=== PATIENT | male | born 1945 | race Caucasian/White ===

== ENCOUNTER 2022-03-19 22:10 | Emergency (ER) | payer MEDICARE, BC, SELFPAY ==
--- NOTE | 2022-03-19 22:15 | CRLHL7_ITS ---
For Patients: As a result of the Cures Act, medical imaging exams and procedure reports are released immediately into your electronic medical record. You may view this report before your referring provider. If you have questions, please contact your health care provider. INDICATION: Fall, hit head. COMPARISON: None. TECHNIQUE: CT of the head without IV contrast. Coronal and sagittal reconstructions. FINDINGS: No intracranial hemorrhage, mass effect, or evidence of acute infarct. No midline shift. No abnormal extra-axial fluid collections. Mild generalized cerebral and cerebellar volume loss with associated ex vacuo dilation of the lateral ventricles. Mild chronic small vessel ischemic disease. Orbits and extraocular muscles are symmetric. The paranasal sinuses and mastoid air cells are clear. Scaphocephaly is noted. No acute fracture identified. Mild posterior scalp soft tissue swelling. IMPRESSION: 1. No acute intracranial findings. 2. Mild generalized cerebral volume loss and mild chronic small vessel ischemic disease. 3. Mild posterior scalp soft tissue swelling. Please note that all CT scans at this facility use dose modulation, iterative reconstruction, and/or weight-based dosing when appropriate to reduce radiation dose to as low as reasonably achievable. Dictated by Teresita Chow MD @ 03/19/2022 11:42:01 PM (Electronically Signed)
--- NOTE | 2022-03-19 22:22 | CRLHL7_ITS ---
For Patients: As a result of the Cures Act, medical imaging exams and procedure reports are released immediately into your electronic medical record. You may view this report before your referring provider. If you have questions, please contact your health care provider. INDICATION: Fall, head and neck pain. COMPARISON: None. TECHNIQUE: CT of the cervical spine without IV contrast. Coronal and sagittal reconstructions. FINDINGS: No acute fracture or traumatic malalignment of the cervical spine. Vertebral body heights are well maintained. Normal vertebral body alignment. Spondylotic changes including endplate spurring, facet arthropathy, and disc space narrowing greatest at C5-C6 and C6-C7. Moderate neural foraminal narrowing on the right at C3-C4 and moderate bilaterally at C5-C6. No significant spinal canal stenosis. No prevertebral soft tissue swelling. Visualized intracranial contents are unremarkable. The mastoid air cells are clear. The thyroid gland is normal in appearance. Calcified granuloma posterior left apex. The lung apices are otherwise clear. IMPRESSION: 1. No acute fracture or traumatic malalignment of the cervical spine. 2. Spondylotic changes of the cervical spine as described above. Please note that all CT scans at this facility use dose modulation, iterative reconstruction, and/or weight-based dosing when appropriate to reduce radiation dose to as low as reasonably achievable. Dictated by Teresita Chow MD @ 03/19/2022 11:48:38 PM (Electronically Signed)
--- NOTE | 2022-03-19 22:23 | CRLHL7_ITS ---
For Patients: As a result of the Century Cures Act, medical imaging exams and procedure reports are released immediately into your electronic medical record. You may view this report before your referring provider. If you have questions, please contact your health care provider. INDICATION: Fall. TECHNIQUE: Two views of the thoracic spine. Two views of the lumbar spine. COMPARISON: None available. FINDINGS: Diffuse demineralization. Thoracic spine: The visualization of the upper thoracic spine is degraded by overlying attenuating structures. Mild generalized thoracic hyperkyphosis. No static subluxation or thoracic vertebral height loss identified. Mild multilevel spondylosis. Lumbar spine: Normal alignment. The lumbar vertebral body heights are maintained. Moderate multilevel spondylosis. IMPRESSION: Thoracolumbar spine without static subluxation or vertebral height loss. Dictated by Jessee Arciniega MD @ 03/19/2022 11:47:36 PM Dictated by: Jessee Arciniega MD @ 03/19/2022 23:47:52 (Electronically Signed)
[2022-03-19 22:24] VITALS: BP 165/90; PULSE 97; RESP 16; TEMP 36.8; O2SAT 98
--- NOTE | 2022-03-19 22:25 | ED.HEATRA ---
HPI - Head Injury General Time Seen by Provider: 22:25 Date Seen: 03/19/22 Chief complaint: Head Injury/Pain Stated complaint: fell on ice Time Seen by Provider: 03/19/22 22:25 Source: patient and RN notes reviewed Mode of arrival: ambulatory Limitations: no limitations History of Present Illness HPI Narrative: Patient is a very pleasant 76-year-old gentleman with history of type 2 diabetes and hyperlipidemia who comes to the emergency room for evaluation regarding fall. Patient was departing the hospital after having visited his who is a patient on [facility] when he fell in our parking lot. He fell onto his back initially and then struck the back of his head. He did not lose consciousness. He remembers being helped up by 2 individuals. He actually drove home and realized that he had lost his cellphone and came back. Once here he decided to be checked out as he had been experiencing increasing back pain. Given volume he was visualized briefly in the hallway and was alert and oriented and sent directly to CT for head neck CTs as well as lumbar and thoracic spine x-rays. Now that he is back in his room he notes that he has been experiencing increasing discomfort in his back bilaterally. Does is upper back rib area. He notes that it is incredibly painful to take a deep breath. He also notes discomfort in the upper aspect of his abdomen and lower anterior chest wall. He has not had any nausea or vomiting. At this time he denies neck pain. He does note that he has a large bump on the back of his head. He denies lower extremity numbness or tingling. Related Data Home Medications Medication Instructions Recorded Confirmed atorvastatin 20 mg tablet mg 03/19/22 metformin 500 mg tablet,extended mg PO 03/19/22 release 24 hr Allergies Allergy/AdvReac Type Severity Reaction Status Date / Time No Known Drug Allergies Allergy Verified 03/19/22 22:26 Review of Systems Status of ROS: Reports: 10 or more systems reviewed and unremarkable except as noted in History and below Const: Denies: fever or chills Eyes: Denies: change in vision or blurry vision ENMT: Denies: throat pain or neck pain Cardio: Reports: chest pain (With inspiration); Denies: palpitations, swelling of feet/ankles or shortness of breath with exertion Resp: Denies: shortness of breath, cough or wheezing GI: Reports: abdominal pain; Denies: nausea, vomiting or diarrhea : Denies: painful urination or urinary frequency Musculo: Reports: back pain; Denies: neck pain, extremity pain or extremity swelling Neuro: Reports: headache; Denies: numbness in extremities or weakness in extremities Allergy/Immuno: Denies: wheezing [facility] Medical History Diabetes Hypercholesteremia Social History Smoking Status: Never smoker How often do you have a drink containing alcohol: never AUDIT-C Alcohol total score: 0 Exam Narrative: Exam Narrative: Patient is alert and oriented. GCS of 15. EOM is full and pupils are equal round reactive. Heart with regular rate and rhythm and lungs are clear in all lung alejandro. However patient has having difficulty with deep inspiration. May be decreased breath sounds in the bases. Patient has no tenderness down thoracic or lumbar spine centrally. He does have tenderness without crepitus over the bilateral posterior ribs. No ecchymosis is noted. Abdomen is obese soft nontender. Moving all extremities. Const: Vital Signs, click to edit/add: Vital Signs - 24 hr 03/19/22 22:24 03/19/22 23:40 03/20/22 01:06 Temperature 98.2 F 98.2 F 98.6 F Pulse Rate [Right Pulse Oximeter] 97 89 88 Respiratory Rate 16 16 16 Blood Pressure [Ri ght Upper Arm] 165/90 H 128/88 131/91 H Pulse Oximetry 98 97 Oxygen Delivery Me thod Room Air Room Air Documenting provider has reviewed patient's vital signs: yes Course Course Hospital Course: At this time will need to add chest CT as I suspect rib fractures in this gentleman. Will also use morphine 2 mg Zofran 4 mg for discomfort. Reevaluation(s) Reevaluation #1: Patient declines morphine as he wishes to drive home tonight. He continues to have stable vital signs. Vital Signs Vital signs: Initial Vital Signs Temperature 98.2 F 03/19/22 22:24 Temperature Source Temporal Artery Scan 03/19/22 22:24 Pulse Rate 97 03/19/22 22:24 Pulse Rhythm 03/19/22 22:24 Respiratory Rate 16 02/06/23 22:24 Blood Pressure 165/90 H 03/19/22 22:24 Blood Pressure Mean 115 03/19/22 22:24 Blood Pressure Position Sitting 03/19/22 22:24 Pulse Oximetry 98 03/19/22 22:24 Oxygen Delivery Method 03/19/22 22:24 Vital Signs Temperature 98.2 F 03/19/22 22:24 Pulse Rate 97 03/19/22 22:24 Respiratory Rate 16 03/19/22 22:24 Blood Pressure 165/90 H 03/19/22 22:24 Pulse Oximetry 98 03/19/22 22:24 Oxygen Delivery Method 03/19/22 22:24 Temperature 98.6 F 03/20/22 01:06 Pulse Rate 88 03/20/22 01:06 Respiratory Rate 16 03/20/22 01:06 Blood Pressure 131/91 H 03/20/22 01:06 Pulse Oximetry 97 03/19/22 23:40 Oxygen Delivery Method 03/19/22 23:40 MDM - Head Injury MDM Narrative Medical decision making narrative: 1. Fall -patient is noted to have slipped in our parking lot landing on his back and then striking his head. He had no produce drove will symptoms to this and fortunately no acute significant injury. 2. Head injury-patient has no signs of concussion at this time. He is denies nausea vomiting. No visual changes. Head CT without evidence of intracranial bleed or skull fracture. Recommend Tylenol as needed for discomfort. Receive 1 g Tylenol while in the emergency room. 3. Rib injury-patient has discomfort with deep breathing and definitely has discomfort with palpation over his back. CT of the chest without evidence of pneumothorax or fracture of the ribs. Patient is requesting something for pain at home. This would be reasonable tonight. Will use oxycodone 5 mg tab 1/2-1 tab p.o. q.4-6 hours p.r.n. pain, 10. With no refills. Did explain to patient that he should not be using alcohol, driving. He does not have a history of sleep apnea nor does he use benzodiazepines. 4. Disposition-patient is discharged home. CT without any evidence of abdominal injury. Return to the emergency room for onset of new symptoms and for worsening symptoms. Medical Records Attestation: I reviewed the patient's medical records. Lab Data Attestation: I reviewed the patient's lab results. Labs: Lab Results 03/19/22 03/19/22 03/19/22 Range/Units 23:30 23:30 23:42 WBC 13.98 H (4.50-11.00) K/uL RBC 5.19 (4.30-5.90) m/uL Hgb 17.0 (13.5-17.5) gm/dL Hct 49.6 (37.0-53.0) % MCV 96 (80-100) fL MCH 33 (26-34) pg MCHC 34 (32-36) gm/dL RDW Coeff of Shelbie 11.7 (11.5-15.5) % Plt Count 295 (140-440) K/uL Neut % (Auto) 84.0 H (42.0-72.0) % Lymph % (Auto) 6.3 L (20-44) % Floyd % (Auto) 7.2 (0.0-11.0) % Eos % (Auto) 1.2 (0.0-7.0) % Baso % (Auto) 0.2 (0.0-3.0) % Neut # (Auto) 11.70 H (1.7-7.0) K/uL Lymph # (Auto) 0.90 (0.90-2.90) K/uL Floyd # (Auto) 1.00 H (0.00-0.90) K/UL Eos # (Auto) 0.20 (0.00-0.50) K/uL Baso # (Auto) 0.00 (0.00-0.30) K/uL Sodium 137 (135-149) mmol/L Potassium 4.7 (3.6-5.1) mmol/L Chloride 103 (96-114) mmol/L Carbon Dioxide 27 (20-32) mmol/L BUN 18 (7-30) mg/dL Creatinine 0.8 (0.5-1.5) mg/dL Estimated GFR 93 ml/min Glucose 209 H (60-115) mg/dL Calcium 9.5 (8.4-10.6) mg/dL Total Bilirubin 1.4 (0.1-1.5) mg/dL AST 37 H (12-35) U/L ALT 31 (4-50) U/L Alkaline Phosphatase 86 (40-150) U/L Total Protein 7.6 (6.0-8.3) g/dL Albumin 4.6 (3.3-5.0) g/dL POC Creatinine 1.0 (0.6-1.3) mg/dl Imaging Data CT scan - head: Attestation: I have reviewed the pertinent imaging results. My impression: No intracranial bleed or skull fracture noted. Radiologist's impression: No intracranial hemorrhage, mass effect, or evidence of acute infarct. No midline shift. No abnormal extra-axial fluid collections. Mild generalized cerebral and cerebellar volume loss with associated ex vacuo dilation of the lateral ventricles. Mild chronic small vessel ischemic disease. Orbits and extraocular muscles are symmetric. The paranasal sinuses and mastoid air cells are clear. Scaphocephaly is noted. No acute fracture identified. Mild posterior scalp soft tissue swelling. IMPRESSION: 1. No acute intracranial findings. 2. Mild generalized cerebral volume loss and mild chronic small vessel ischemic disease. 3. Mild posterior scalp soft tissue swelling. Cervical spine CT: Attestation: I have reviewed the pertinent imaging results. My impression: No noted fracture Radiologist's impression: No acute fracture or traumatic malalignment of the cervical spine. Vertebral body heights are well maintained. Normal vertebral body alignment. Spondylotic changes including endplate spurring, facet arthropathy, and disc space narrowing greatest at C5-C6 and C6-C7. Moderate neural foraminal narrowing on the right at C3-C4 and moderate bilaterally at C5-C6. No significant spinal canal stenosis. No prevertebral soft tissue swelling. Visualized intracranial contents are unremarkable. The mastoid air cells are clear. The thyroid gland is normal in appearance. Calcified granuloma posterior left apex. The lung apices are otherwise clear. IMPRESSION: 1. No acute fracture or traumatic malalignment of the cervical spine. 2. Spondylotic changes of the cervical spine as described above. Chest CT: Attestation: I have reviewed the pertinent imaging results. My impression: I do not note any pneumothorax or acute bony injury Radiologist's impression: ardiovascular structures: Heart size is normal. Thoracic aorta and main pulmonary artery are normal in caliber. Atherosclerotic calcification of the thoracic aorta. Mediastinum and cindy: No mass or adenopathy. Lungs and pleura: Lungs and pleural spaces are clear. No suspicious nodules, or effusions. Calcified left upper lobe granuloma. Chest wall and axilla: No mass or adenopathy. Bones: No acute fracture or dislocation. Specifically, no rib fracture. ABDOMEN AND PELVIS: Liver: Unremarkable. No sign of acute injury. Gallbladder and bile ducts: Unremarkable. Pancreas: Unremarkable. Spleen: Unremarkable. No sign of acute injury. Adrenal glands: Unremarkable. Kidneys: Unremarkable. GI tract: Diverticulosis without pericolonic inflammation. Normal appendix. No bowel obstruction. No inflammation. Vascular structures: Normal caliber abdominal aorta with mild atherosclerotic calcification. Mesenteric arteries are patent. Lymph nodes: Unremarkable. Miscellaneous: Unremarkable. No free air or significant free fluid. Pelvic Organs: Mild prostatomegaly. Bones: No acute fracture or dislocation. Multilevel lumbar spondylosis. IMPRESSION: No sign of acute injury within the chest, abdomen, and pelvis. Specifically, no rib fracture. Thoracolumbar spine x-ray: Attestation: I have reviewed the pertinent imaging results. My impression: Decreased height of T12 but appears chronic in nature. Radiologist's impression: The visualization of the upper thoracic spine is degraded by overlying attenuating structures. Mild generalized thoracic hyperkyphosis. No static subluxation or thoracic vertebral height loss identified. Mild multilevel spondylosis. Lumbar spine: Normal alignment. The lumbar vertebral body heights are maintained. Moderate multilevel spondylosis. IMPRESSION: Thoracolumbar spine without static subluxation or vertebral height loss. Discharge Plan Discharge Clinical Impression: Traumatic injury of mid back, Concussion without loss of consciousness Patient Disposition: Home, Self-Care Condition: Improved Additional Instructions: Tylenol as needed for discomfort. You may use oxycodone sparingly for pain not relieved by Tylenol. Please be aware that this is a medication that you would not want to use with alcohol or muscle relaxants. You should not use this medication if you are driving. This medicine may cause constipation. Seek medical attention or return for worsening symptoms. Prescriptions: No Action atorvastatin 20 mg tablet metformin 500 mg tablet extended release 24 hr PO Stand Alone Forms: [employer] Info Instructions
--- NOTE | 2022-03-19 23:27 | CRLHL7_ITS ---
For Patients: As a result of the Century Cures Act, medical imaging exams and procedure reports are released immediately into your electronic medical record. You may view this report before your referring provider. If you have questions, please contact your health care provider. INDICATION: Trauma. TECHNIQUE: CT chest, abdomen and pelvis acquired with 100 cc Omnipaque 350 IV contrast. COMPARISON: None. FINDINGS: CHEST: Cardiovascular structures: Heart size is normal. Thoracic aorta and main pulmonary artery are normal in caliber. Atherosclerotic calcification of the thoracic aorta. Mediastinum and cindy: No mass or adenopathy. Lungs and pleura: Lungs and pleural spaces are clear. No suspicious nodules, or effusions. Calcified left upper lobe granuloma. Chest wall and axilla: No mass or adenopathy. Bones: No acute fracture or dislocation. Specifically, no rib fracture. ABDOMEN AND PELVIS: Liver: Unremarkable. No sign of acute injury. Gallbladder and bile ducts: Unremarkable. Pancreas: Unremarkable. Spleen: Unremarkable. No sign of acute injury. Adrenal glands: Unremarkable. Kidneys: Unremarkable. GI tract: Diverticulosis without pericolonic inflammation. Normal appendix. No bowel obstruction. No inflammation. Vascular structures: Normal caliber abdominal aorta with mild atherosclerotic calcification. Mesenteric arteries are patent. Lymph nodes: Unremarkable. Miscellaneous: Unremarkable. No free air or significant free fluid. Pelvic Organs: Mild prostatomegaly. Bones: No acute fracture or dislocation. Multilevel lumbar spondylosis. IMPRESSION: No sign of acute injury within the chest, abdomen, and pelvis. Specifically, no rib fracture. Please note that all CT scans at this facility use dose modulation, iterative reconstruction, and/or weight-based dosing when appropriate to reduce radiation dose to as low as reasonably achievable. Dictated by Michael Ceja MD @ 03/20/2022 12:19:43 AM (Electronically Signed)
[2022-03-19 23:40] VITALS: BP 128/88; PULSE 89; RESP 16; TEMP 36.8; O2SAT 97
[2022-03-19 23:46] LABS: Basophils Percent Auto 0.2 % (0.0-3.0); Eosinophils Percent Auto 1.2 % (0.0-7.0); Hematocrit 49.6 % (37.0-53.0); Immature Granulocytes Pct Auto 1.1 %; Lymphocytes Percent Auto 6.3 % (20-44); Mean Corpuscular HGB Conc 34 gm/dL (32-36); Mean Corpuscular Hemoglobin 33 pg (26-34); Mean Corpuscular Volume 96 fL (80-100); Monocytes Percent Auto 7.2 % (0.0-11.0); Platelet Count* 295 K/uL (140-440); RDW Coefficient of Variation % 11.7 % (11.5-15.5); Red Blood Count 5.19 m/uL (4.30-5.90); White Blood Count* 13.98 K/uL (4.50-11.00)
[2022-03-19 23:50] LABS: Slide Review Reflex No
[2022-03-19 23:58] LABS: Albumin* 4.6 g/dL (3.3-5.0); Chloride* 103 mmol/L (96-114)
[2022-03-19 23:59] LABS: Potassium* 4.7 mmol/L (3.6-5.1); Sodium* 137 mmol/L (135-149)
[2022-03-20 00:01] LABS: Aspartate Amino Transferase* 37 U/L (12-35); Bilirubin Total* 1.4 mg/dL (0.1-1.5); Carbon Dioxide* 27 mmol/L (20-32); Creatinine* 0.8 mg/dL (0.5-1.5); Estimated Glomerular Filt Rate 93 ml/min; Total Protein* 7.6 g/dL (6.0-8.3)
[2022-03-20 00:02] LABS: Alanine Aminotransferase* 31 U/L (4-50); Alkaline Phosphatase* 86 U/L (40-150); Blood Urea Nitrogen* 18 mg/dL (7-30); Calcium* 9.5 mg/dL (8.4-10.6); Glucose* 209 mg/dL (60-115)
[2022-03-20] MEDS: 0.9 % SODIUM CHLORIDE 500 ML 500 ML IV (00:28)
[2022-03-20] MEDS: ACETAMINOPHEN 500 MG TABLET 1000 MG PO (00:29)
[2022-03-20 01:06] VITALS: BP 131/91; PULSE 88; RESP 16; TEMP 37
== END 2022-03-20 01:07 | disposition home or self-care (01) ==
PROVIDERS: Emergency Provider Family Medicine; PCP Student in an Organized Health Care Education/Training Program
DX: S06.0X0A Concussion without loss of consciousness, initial encounter (principal); W00.9XXA Unspecified fall due to ice and snow, initial encounter; M54.9 Dorsalgia, unspecified
CPT/HCPCS: 36415; 70450; 71260; 72072; 72100; 72125; 74177; 80053; 82565; 85025; 96374; 96375; 99284; 99285; A9270; J7120; Q9967